=== PATIENT | male | born 1980 | race Caucasian/White ===

== ENCOUNTER 2025-06-17 15:01 | Emergency (ER) | payer MEDICAID ==
[2025-06-17] MEDS: Bacitracin Oint 1 GM U/D Packet TOP ONE (16:30)
== END 2025-06-17 16:51 | disposition home or self-care (01) ==
LOC: JP.ED 15:01
DX: S81.812A Laceration without foreign body, left lower leg, initial encounter (principal); W22.8XXA Striking against or struck by other objects, initial encounter
CPT/HCPCS: 12001; 12002; 99282; 99283; J2003